=== PATIENT | female | born 1940 | race Caucasian/White ===

== ENCOUNTER → 2018-05-08 | Outpatient (CLI) | payer MEDICARE, BC ==
[~2018-05-08] MED LIST: ASPI81CH PO; Aspir 8181 MG PO; CHOL10002; CITRACAL; Daily Multiple1 EACH PO; LETR2.5 PO; LEVSOD25; METF500C PO; MULVITA; Synthroid112 MCG PO; VITAMIN D35000 UNI1 PO; WARF5; WARF5 PO
[2018-05-08 12:55] LABS: BASOPHILS ABSOLUTE AUTO 0.02 K/mm3 (0.00-0.23); BASOPHILS PERCENT AUTO 0 % (0-2); EOSINOPHILS PERCENT AUTO 6 % (0-6); Hematocrit 37.6 % (33.0-51.0); Hemoglobin 12.3 g/dL (11.5-16.0); IMMATURE GRAN ABSOLUTE AUTO 0.04 K/mm3 (0.00-0.10); IMMATURE GRAN PERCENT AUTO 1 % (0-1); LYMPHOCYTES ABSOLUTE AUTO 2.44 K/mm3 (0.84-5.20); LYMPHOCYTES PERCENT AUTO 38 % (21-46); MONOCYTES ABSOLUTE AUTO 0.48 K/mm3 (0.16-1.47); MONOCYTES PERCENT AUTO 8 % (4-13); Mean Corpuscular HGB 28.8 pg (26.0-34.0); Mean Corpuscular HGB Conc 32.7 g/dL (31.5-36.5); Mean Corpuscular Volume 88 fL (80-100); Mean Platelet Volume 10.9 fL (9.1-12.4); NEUTROPHILS PERCENT AUTO 47 % (41-73); Platelet Count 268 K/mm3 (150-400); RDW Standard Deviation 45.1 fL (35.1-46.3); Red Blood Cell Count 4.27 M/mm3 (3.80-5.20); White Blood Cell Count 6.38 K/mm3 (4.00-11.30)
[2018-05-08 13:16] LABS: Alanine Aminotransfer (ALT/SGP 20 U/L (12-78); Albumin, Blood 3.6 g/dL (3.4-5.0); Albumin/Globulin Ratio 0.9 (0.8-1.8); Alk Phos 62 U/L (40-126); Anion Gap 9 mmol/L (6-16); Aspartate Aminotrans (AST/SGOT 16 U/L (12-37); Bilirubin, Total 0.3 mg/dL (0.1-1.0); Blood Urea Nitrogen 16 mg/dL (8-24); Bun/Creatinine Ratio 18.8 (12.0-20.0); CO2, Blood 28 mmol/L (21-32); Calcium, Blood 9.2 mg/dL (8.5-10.1); Chloride, Blood 105 mmol/L (98-108); Creatinine, Blood 0.85 mg/dL (0.40-1.00); Globulin, Blood 4.1 g/dL (2.2-4.0); Glomerular Filtration Rate >60 (60-); Glucose, Blood 89 mg/dL (70-99); Potassium, Blood 3.9 mmol/L (3.5-5.5); Sodium, Blood 142 mmol/L (136-145); Thyroid Stimulating Hormone 0.358 uIU/mL (0.360-4.800); Total Protein, Blood 7.7 g/dL (6.4-8.2)
[2018-05-08 13:17] LABS: Troponin I <0.017 ng/mL (0.000-0.040)
[2018-05-08 14:03] LABS: Free Thyroxine 1.37 ng/dL (0.70-1.60)
== END | disposition home or self-care (01) ==
LOC: LAB EV 12:51 → LAB SHORT 12:51
PROVIDERS: Physician Assistant
DX: I16.0 Hypertensive urgency (principal); E03.9 Hypothyroidism, unspecified
CPT/HCPCS: 80053; 84439; 84443; 84481; 84484; 85025

== ENCOUNTER → 2019-05-26 | Outpatient (CLI) | payer MEDICARE, BC | END | disposition home or self-care (01) | LOC: LAB SHORT 18:01 → LAB 18:01 | DX: R30.0 Dysuria (principal); R30.9 Painful micturition, unspecified | CPT/HCPCS: 87077; 87086; 87186 ==

== ENCOUNTER → 2019-11-12 | Outpatient (CLI) | payer MEDICARE, BC ==
[2019-11-12 18:53] LABS: BASOPHILS ABSOLUTE AUTO 0.03 K/mm3 (0.00-0.23); BASOPHILS PERCENT AUTO 0 % (0-2); EOSINOPHILS ABSOLUTE AUTO 0.16 K/mm3 (0.00-0.68); EOSINOPHILS PERCENT AUTO 2 % (0-6); Hematocrit 36.3 % (33.0-51.0); Hemoglobin 12.1 g/dL (11.5-16.0); IMMATURE GRAN ABSOLUTE AUTO 0.02 K/mm3 (0.00-0.10); IMMATURE GRAN PERCENT AUTO 0 % (0-1); LYMPHOCYTES ABSOLUTE AUTO 2.47 K/mm3 (0.84-5.20); LYMPHOCYTES PERCENT AUTO 37 % (21-46); MONOCYTES ABSOLUTE AUTO 0.49 K/mm3 (0.16-1.47); MONOCYTES PERCENT AUTO 7 % (4-13); Mean Corpuscular HGB 29.2 pg (26.0-34.0); Mean Corpuscular HGB Conc 33.3 g/dL (31.5-36.5); Mean Corpuscular Volume 88 fL (80-100); Mean Platelet Volume 10.9 fL (9.1-12.4); NEUTROPHILS ABSOLUTE AUTO 3.52 K/mm3 (1.96-9.15); NEUTROPHILS PERCENT AUTO 53 % (41-73); Platelet Count 267 K/mm3 (150-400); RDW Coefficient Variation 14.3 % (11.7-14.2); RDW Standard Deviation 45.7 fL (35.1-46.3); Red Blood Cell Count 4.14 M/mm3 (3.80-5.20); White Blood Cell Count 6.69 K/mm3 (4.00-11.30)
[2019-11-12 19:11] LABS: Alanine Aminotransfer (ALT/SGP 19 U/L (12-78); Albumin, Blood 3.9 g/dL (3.4-5.0); Alk Phos 66 U/L (40-126); Anion Gap 11 mmol/L (6-16); Aspartate Aminotrans (AST/SGOT 19 U/L (12-37); Bilirubin, Total 0.3 mg/dL (0.1-1.0); Blood Urea Nitrogen 15 mg/dL (8-24); Bun/Creatinine Ratio 16.9 (12.0-20.0); CO2, Blood 24 mmol/L (21-32); Calcium, Blood 8.9 mg/dL (8.5-10.1); Chloride, Blood 103 mmol/L (98-108); Creatinine, Blood 0.89 mg/dL (0.40-1.00); Globulin, Blood 3.9 g/dL (2.2-4.0); Glomerular Filtration Rate >60 (60-); Glucose, Blood 96 mg/dL (70-99); Potassium, Blood 3.7 mmol/L (3.5-5.5); Sodium, Blood 138 mmol/L (136-145); Thyroid Stimulating Hormone 1.159 uIU/mL (0.360-4.800); Total Protein, Blood 7.8 g/dL (6.4-8.2)
[2019-11-12 19:12] LABS: Troponin I <0.017 ng/mL (0.000-0.040)
== END ==
LOC: LAB SHORT 18:46 → LAB EV 18:46
PROVIDERS: Physician Assistant
DX: R00.2 Palpitations (principal)
CPT/HCPCS: 80053; 84443; 84484; 85025; 85379

== ENCOUNTER → 2021-07-25 | Outpatient (CLI) | payer MEDICARE, BC | END | disposition home or self-care (01) | LOC: LAB SHORT 17:01 | DX: M79.672 Pain in left foot (principal) | CPT/HCPCS: 84550 ==

== ENCOUNTER 2023-03-18 16:12 | Emergency (ER) | payer OTHER, MEDICARE, BC ==
[~2023-03-18] VITALS: Ht 160 cm; Wt 73.9 kg
[~2023-03-18 16:12] MED LIST changes: +CODEINE-GUAIFE120 M1 PO
[2023-03-18] MEDS ORDERED: DONEPEZIL HCL10 MG PO (16:33)
[2023-03-18] MEDS ORDERED: LOSA25 PO (16:34)
[2023-03-18] MEDS ORDERED: ZOLOFT10013 PO (16:37)
[2023-03-18] MEDS ORDERED: MEMA10 PO (16:38)
[2023-03-18] MEDS ORDERED: MELA3 PO (16:39)
[2023-03-18] MEDS ORDERED: VITAMIN D31000 UNI1 PO (16:39)
[2023-03-18] MEDS ORDERED: ASCO500 PO (16:40)
[2023-03-18 20:15] VITALS: BP 132/90
== END 2023-03-18 20:30 | disposition home or self-care (01) ==
LOC: ER 16:12
DX: S00.12XA Contusion of left eyelid and periocular area, initial encounter (principal); S60.222A Contusion of left hand, initial encounter; S80.02XA Contusion of left knee, initial encounter; I10 Essential (primary) hypertension; E03.9 Hypothyroidism, unspecified; F03.90 Unspecified dementia, unspecified severity, without behavioral disturbance, psychotic disturbance, mood disturbance, and anxiety; Z88.5 Allergy status to narcotic agent; Z88.8 Allergy status to other drugs, medicaments and biological substances; Z87.891 Personal history of nicotine dependence; Z79.899 Other long term (current) drug therapy; Z79.890 Hormone replacement therapy; W01.0XXA Fall on same level from slipping, tripping and stumbling without subsequent striking against object, initial encounter
CPT/HCPCS: 70450; 73110; 73562-LT; 99284-25; A9270

== ENCOUNTER 2023-04-01 18:20 | Observation (INO) | payer MEDICARE ==
[~2023-04-01] VITALS: Ht 160 cm; Wt 76.2 kg
[~2023-04-01 18:20] MED LIST changes: +ASCO500 PO; +DONEPEZIL HCL10 MG PO; +LOSA25 PO; +MELA3 PO; +MEMA10 PO; +VITAMIN D31000 UNI1 PO; +ZOLOFT10013 PO
[2023-04-01 21:17] LABS: BASOPHILS ABSOLUTE AUTO 0.05 K/mm3 (0.00-0.23); BASOPHILS PERCENT AUTO 1 % (0-2); EOSINOPHILS ABSOLUTE AUTO 0.11 K/mm3 (0.00-0.68); EOSINOPHILS PERCENT AUTO 1 % (0-6); Hematocrit 33.4 % (33.0-51.0); Hemoglobin 11.2 g/dL (11.5-16.0); IMMATURE GRAN ABSOLUTE AUTO 0.03 K/mm3 (0.00-0.10); IMMATURE GRAN PERCENT AUTO 0 % (0-1); LYMPHOCYTES PERCENT AUTO 17 % (21-46); MONOCYTES ABSOLUTE AUTO 0.55 K/mm3 (0.16-1.47); MONOCYTES PERCENT AUTO 6 % (4-13); Mean Corpuscular HGB Conc 33.5 g/dL (31.5-36.5); Mean Corpuscular Volume 90 fL (80-100); Mean Platelet Volume 10.6 fL (9.1-12.4); NEUTROPHILS PERCENT AUTO 75 % (41-73); Platelet Count 295 K/mm3 (150-400); RDW Coefficient Variation 13.9 % (11.7-14.2); RDW Standard Deviation 45.5 fL (35.1-46.3); Red Blood Cell Count 3.73 M/mm3 (3.80-5.20); White Blood Cell Count 9.84 K/mm3 (4.00-11.30)
[2023-04-01 21:37] LABS: Albumin, Blood 3.8 g/dL (3.4-5.0); Bilirubin, Total 0.3 mg/dL (0.1-1.0); Bun/Creatinine Ratio 47.8 (12.0-20.0); Calcium, Blood 9.9 mg/dL (8.5-10.1); Creatinine, Blood 1.15 mg/dL (0.40-1.00); Globulin, Blood 3.9 g/dL (2.2-4.0); Potassium, Blood 3.7 mmol/L (3.5-5.5); Total Protein, Blood 7.7 g/dL (6.4-8.2)
[2023-04-02 16:45] VITALS: BP 111/78
[2023-04-02] MEDS ORDERED: MELA3 PO (17:23)
--- NOTE | 2023-04-02 18:01 | NUR ---
ASSUMED CARE OF PT AT 1645. PT AND FAMILY ORIENTED TO ROOM. ADMISSION HX AND ASSESSMENTS COMPLETED. NO ACUTE CHANGES AT THIS TIME. PT ORIENTED TO SELF AND FAMILY, OCCASIONALY PLACE. PT PLEASANTLY CONFUSED BUT REORIENTABLE.
--- NOTE | 2023-04-02 18:03 | NUR ---
SHIFT SUMMARY PT A&O TO PERSON AND SELF. VSS. HX OF DEMENTIA, CONFUSED BUT REORIENTABLE. NO ACUTE EVENTS DURING MY SHIFT. FAMILY AT BEDSIDE ABLE TO GIVE FULL PT HX AND RX RECONCILLIATION. PT LEFT IN A POSITION OF SAFETY WITH NONSKID SOCKS IN PLACE, BED LOCKED AND IN LOWEST POSITION, CALL LIGHT IN REACH, FLOOR CLEAR OF DEBRIS, AND BED ALARM ENABLED.
--- NOTE | 2023-04-02 19:28 | NUR ---
RECEIVED BEDSIDE REPORT FROM GARY RN. PT ALERT TO NAME. RESP EVEN ON RA. WILL PROVIDE CARE T/O SHIFT. BED ALARM ON. CALL LT IN REACH.
[2023-04-02 19:45] VITALS: BP 171/88
[2023-04-02 22:48] VITALS: BP 180/87
--- NOTE | 2023-04-02 23:58 | NUR ---
25 MG HYDRALAZINE GIVEN PO FOR SBP GREATER THAN 160. SBP 180. WILL REASSESS. BED ALARM ON. CALL LT IN REACH.
--- NOTE | 2023-04-03 01:29 | NUR ---
PT RESTING COMFORTABLY, LIGHTLY SNORING. BED ALARM ON. CALL LT IN REACH.
--- NOTE | 2023-04-03 02:00 | NUR ---
PT CONTINUES TO REST QUIETLY. BED ALARM ON. CALL LT IN REACH.
--- NOTE | 2023-04-03 04:00 | NUR ---
CONTINUES TO REST QUIETLY, LIGHTLY SNORING. BED ALARM ON. CALL LT IN REACH.
--- NOTE | 2023-04-03 04:28 | NUR ---
ALERT TO SELF AND OCCASIONALY STAFF. PLEASANTLY CONFUSED, IMPULSIVE AT TIMES, COOPERATIVE WITH CARE. ON RA. NO COMPLAINTS OF SOB, CHEST PAIN OR CHEST PRESSURE. NO COMPLAINTS OF HEADACHES. TOOK MEDS WHOLE WITH WATER WITHOUT DIFFICULTY. 1PA TO THE BSC. SET OFF BED ALARM A FEW TIMES DURING SHIFT. WAS EASILY DIRECTABLE BACK TO BED. NO IV ACCESS ORDER RECEIVED AFTER PT PULLED HER IV OUT. IV HYDRALAZINE CHANGED TO PO HYDRALAZINE, TO BE GIVEN IF SBP IS GREATER THAN 160, ONE DOSE GIVEN FOR SBP OF 180. WILL CONTINUE TO PROVIDE CARE UNTIL SHIFT REPORT. CALL LTE IN REACH.
[2023-04-03 04:49] VITALS: BP 154/78
[2023-04-03 05:02] LABS: BASOPHILS ABSOLUTE AUTO 0.05 K/mm3 (0.00-0.23); BASOPHILS PERCENT AUTO 1 % (0-2); EOSINOPHILS ABSOLUTE AUTO 0.28 K/mm3 (0.00-0.68); EOSINOPHILS PERCENT AUTO 4 % (0-6); Hematocrit 33.2 % (33.0-51.0); Hemoglobin 11.2 g/dL (11.5-16.0); IMMATURE GRAN ABSOLUTE AUTO 0.03 K/mm3 (0.00-0.10); IMMATURE GRAN PERCENT AUTO 0 % (0-1); LYMPHOCYTES ABSOLUTE AUTO 2.06 K/mm3 (0.84-5.20); LYMPHOCYTES PERCENT AUTO 30 % (21-46); MONOCYTES ABSOLUTE AUTO 0.58 K/mm3 (0.16-1.47); MONOCYTES PERCENT AUTO 8 % (4-13); Mean Corpuscular HGB 29.3 pg (26.0-34.0); Mean Corpuscular HGB Conc 33.7 g/dL (31.5-36.5); Mean Corpuscular Volume 87 fL (80-100); Mean Platelet Volume 10.4 fL (9.1-12.4); NEUTROPHILS ABSOLUTE AUTO 3.92 K/mm3 (1.96-9.15); NEUTROPHILS PERCENT AUTO 57 % (41-73); Platelet Count 283 K/mm3 (150-400); RDW Coefficient Variation 13.8 % (11.7-14.2); Red Blood Cell Count 3.82 M/mm3 (3.80-5.20); White Blood Cell Count 6.92 K/mm3 (4.00-11.30)
[2023-04-03 05:38] LABS: Albumin, Blood 3.4 g/dL (3.4-5.0); Anion Gap 6 mmol/L (6-16); Blood Urea Nitrogen 33 mg/dL (8-24); Bun/Creatinine Ratio 40.3 (12.0-20.0); CO2, Blood 24 mmol/L (21-32); Calcium, Blood 9.2 mg/dL (8.5-10.1); Chloride, Blood 110 mmol/L (98-108); Creatinine, Blood 0.82 mg/dL (0.40-1.00); Glomerular Filtration Rate 72 (60-); Glucose, Blood 94 mg/dL (70-99); Magnesium, Blood 1.9 mg/dL (1.6-2.4); Phosphorus, Blood 2.4 mg/dL (2.5-4.9); Potassium, Blood 3.4 mmol/L (3.5-5.5); Sodium, Blood 140 mmol/L (136-145)
[2023-04-03 07:18] VITALS: BP 153/82
[2023-04-03] MEDS ORDERED: LOSA50 PO (15:41)
[2023-04-03] MEDS ORDERED: ACET325 PO (15:42)
--- NOTE | 2023-04-03 17:03 | NUR ---
SHIFT SUMMARY PT MEDICALLY STABLE FOR D/C. PT FAMILY IN ROOM, SPOKE WITH DR BREEN REGARDING DISCHARGE. NO ACUTE EVENTS DURING SHIFT, PT DISCHARGED HOME WITH FAMILY AND WAS TRANSPORTED VIA W/C TO CAR. NO PERSONAL ITEMS LEFT IN ROOM, ALL ITEMS WITH PT. VSS. ALL QUESTIONS AND CONCERNS ANSWERED PRIOR TO D/C. D/C EDUCATION GIVEN TO PT AND FAMILY.
== END 2023-04-03 16:26 | disposition home health service (06) ==
LOC: ER 18:20 → ERHOLD 18:21 → MEDS 04-02 16:37
PROVIDERS: Physician Assistant; ADMIT Family Medicine
DX: S06.5X0A Traumatic subdural hemorrhage without loss of consciousness, initial encounter (principal); W18.30XA Fall on same level, unspecified, initial encounter; N17.9 Acute kidney failure, unspecified; F03.90 Unspecified dementia, unspecified severity, without behavioral disturbance, psychotic disturbance, mood disturbance, and anxiety; I10 Essential (primary) hypertension; F41.8 Other specified anxiety disorders; K21.9 Gastro-esophageal reflux disease without esophagitis; E78.5 Hyperlipidemia, unspecified; E03.9 Hypothyroidism, unspecified; Z88.5 Allergy status to narcotic agent; Z79.890 Hormone replacement therapy; Z79.899 Other long term (current) drug therapy
CPT/HCPCS: 36415; 70450; 71045; 72125; 80053; 80069; 83735; 85025; 85379; 93005; 93010; 93971; 96374; 97116; 97162; 97165; 97530; 99285-25; A9270; G0378; J0360

== ENCOUNTER 2023-07-18 09:46 | Inpatient (IN) | payer MEDICARE ==
[~2023-07-18] VITALS: Ht 165.1 cm; Wt 75.1 kg
[~2023-07-18 09:46] MED LIST changes: +ACET325 PO; +LOSA50 PO
[2023-07-18 11:37] LABS: BASOPHILS ABSOLUTE AUTO 0.04 K/mm3 (0.00-0.23); BASOPHILS PERCENT AUTO 1 % (0-2); EOSINOPHILS ABSOLUTE AUTO 0.06 K/mm3 (0.00-0.68); EOSINOPHILS PERCENT AUTO 1 % (0-6); Hematocrit 34.5 % (33.0-51.0); Hemoglobin 11.4 g/dL (11.5-16.0); IMMATURE GRAN ABSOLUTE AUTO 0.04 K/mm3 (0.00-0.10); IMMATURE GRAN PERCENT AUTO 1 % (0-1); LYMPHOCYTES ABSOLUTE AUTO 1.38 K/mm3 (0.84-5.20); LYMPHOCYTES PERCENT AUTO 17 % (21-46); MONOCYTES ABSOLUTE AUTO 0.55 K/mm3 (0.16-1.47); MONOCYTES PERCENT AUTO 7 % (4-13); Mean Corpuscular HGB 29.2 pg (26.0-34.0); Mean Corpuscular Volume 88 fL (80-100); Mean Platelet Volume 10.2 fL (9.1-12.4); NEUTROPHILS ABSOLUTE AUTO 6.15 K/mm3 (1.96-9.15); NEUTROPHILS PERCENT AUTO 75 % (41-73); Platelet Count 159 K/mm3 (150-400); RDW Coefficient Variation 13.8 % (11.7-14.2); RDW Standard Deviation 44.4 fL (35.1-46.3); Red Blood Cell Count 3.91 M/mm3 (3.80-5.20); White Blood Cell Count 8.22 K/mm3 (4.00-11.30)
[2023-07-18 12:07] LABS: Albumin, Blood 3.3 g/dL (3.4-5.0); Albumin/Globulin Ratio 0.8 (0.8-1.8); Bilirubin, Total 0.4 mg/dL (0.1-1.0); Bun/Creatinine Ratio 39.8 (12.0-20.0); Calcium, Blood 9.3 mg/dL (8.5-10.1); Creatinine, Blood 0.91 mg/dL (0.40-1.00); Potassium, Blood 3.8 mmol/L (3.5-5.5); Total Protein, Blood 7.3 g/dL (6.4-8.2)
[2023-07-18 12:20] LABS: Base Excess Venous -3.1 mmol/L; Bicarbonate Venous 21.3 mmol/L (24.0-30.0); PCO2 Venous 44.4 mmHg (38-42); pH Blood Venous 7.32 (7.34-7.37)
[2023-07-18 13:43] LABS: Adenovirus Not Detected (NOT DETECT); Bordetella pertussis Not Detected (NOT DETECT); Chlamydophila pneumoniae Not Detected (NOT DETECT); Coronavirus 229E Not Detected (NOT DETECT); Coronavirus HKU1 Not Detected (NOT DETECT); Coronavirus NL63 Not Detected (NOT DETECT); Coronavirus OC43 Not Detected (NOT DETECT); Human Metapneumovirus Not Detected (NOT DETECT); Human Rhinovirus/Enterovirus Not Detected (NOT DETECT); Influenza A/2009-H1 Not Detected (NOT DETECT); Influenza A/H1 Not Detected (NOT DETECT); Influenza A/H3 Not Detected (NOT DETECT); Influenza B Not Detected (NOT DETECT); Mycoplasma pneumoniae Not Detected (NOT DETECT); Parainfluenza Virus 1 Not Detected (NOT DETECT); Parainfluenza Virus 2 Not Detected (NOT DETECT); Parainfluenza Virus 3 Not Detected (NOT DETECT); Parainfluenza Virus 4 Not Detected (NOT DETECT); Respiratory Syncytial Virus Not Detected (NOT DETECT); SARS-Cov-2 (COVID-19), BioFire Not Detected (NOT DETECT)
[2023-07-18 15:02] LABS: Anti-Xa UFH, PHA Monitoring <0.10 IU/mL; International Normalized Ratio 1.03; Prothrombin Time Results 10.8 Sec (9.7-11.5)
[2023-07-18] MEDS ORDERED: LEVSOD112 PO (16:51)
[2023-07-18] MEDS ORDERED: OYSTER SHELL 51 EACH PO (16:51)
[2023-07-18 20:26] VITALS: BP 144/78
[2023-07-19] VITALS (7 sets, daily range): BP systolic 121–170; BP diastolic 68–88
[2023-07-19 03:52] LABS: BASOPHILS ABSOLUTE AUTO 0.04 K/mm3 (0.00-0.23); BASOPHILS PERCENT AUTO 1 % (0-2); EOSINOPHILS ABSOLUTE AUTO 0.21 K/mm3 (0.00-0.68); EOSINOPHILS PERCENT AUTO 3 % (0-6); Hemoglobin 10.8 g/dL (11.5-16.0); IMMATURE GRAN ABSOLUTE AUTO 0.04 K/mm3 (0.00-0.10); IMMATURE GRAN PERCENT AUTO 1 % (0-1); LYMPHOCYTES ABSOLUTE AUTO 2.23 K/mm3 (0.84-5.20); LYMPHOCYTES PERCENT AUTO 30 % (21-46); MONOCYTES ABSOLUTE AUTO 0.61 K/mm3 (0.16-1.47); MONOCYTES PERCENT AUTO 8 % (4-13); Mean Corpuscular HGB 29.5 pg (26.0-34.0); Mean Corpuscular HGB Conc 33.8 g/dL (31.5-36.5); Mean Corpuscular Volume 87 fL (80-100); Mean Platelet Volume 10.4 fL (9.1-12.4); NEUTROPHILS ABSOLUTE AUTO 4.25 K/mm3 (1.96-9.15); NEUTROPHILS PERCENT AUTO 58 % (41-73); Platelet Count 176 K/mm3 (150-400); RDW Coefficient Variation 13.7 % (11.7-14.2); RDW Standard Deviation 43.8 fL (35.1-46.3); Red Blood Cell Count 3.66 M/mm3 (3.80-5.20); White Blood Cell Count 7.38 K/mm3 (4.00-11.30)
[2023-07-19 04:12] LABS: Albumin, Blood 3.2 g/dL (3.4-5.0); Albumin/Globulin Ratio 0.9 (0.8-1.8); Bilirubin, Total 0.4 mg/dL (0.1-1.0); Bun/Creatinine Ratio 30.8 (12.0-20.0); Calcium, Blood 9.2 mg/dL (8.5-10.1); Creatinine, Blood 1.04 mg/dL (0.40-1.00); Globulin, Blood 3.7 g/dL (2.2-4.0); Potassium, Blood 3.4 mmol/L (3.5-5.5); Total Protein, Blood 6.9 g/dL (6.4-8.2)
--- NOTE | 2023-07-19 06:17 | NUR ---
SHIFT SUMMARY NO ACUTE EVENTS T/O NIGHT. PT A/O X 2. MORE CONFUSED THIS AM, GETTING OOB WITH OUT CALLING, PULLED IV OUT, AND PULLING TELE WIRES OFF. PT EASILY REDIRECTABLE. HEPARIN GTT INFUSING AT 18 UNITS/KG/HR. VSS. SR 70-90'S. DENIES CHEST PAIN/SOB. ON 2L NC. ONE ASSIST TO BSC. WILL REPORT OFF TO ONCOMING RN.
--- NOTE | 2023-07-19 08:44 | NUR ---
PT IS SITTING UP EATING BREAKFAST. NO SOB NOTED. SHE IS REFUSING ALL ORAL MEDICATIONS SHE STATES THAT AT HOME SHE IS "LEFT ALONE" WHEN SHE DOES NOT FEEL LIKE TAKING HER MEDICATIONS. SHE IS PLEASANT AND VERY CONFUSED, WHICH IS HER BASELINE.
--- NOTE | 2023-07-19 18:24 | NUR ---
PT IS ALERT, IS REMAINS VERY CONFUSED, SHE IS VERY TEARFUL AND PARANOID, SHE IS RELUCTANT TO TAKE ORAL MEDICATIONS THIS AM THIS EVENING. SHE IS PLEASANT, SHE COOPERATES WITH MOST CARE. EVENING BLOOD PRESSURE WAS SUSPECTED TO BE ERRONEOUS PT WAS VERY UPSET AND SOBBING, SHE STATES THAT SHE IS CONCERNED THAT HER SON AND DAUGHTER IN LAW ARE "MOVING INTO MY HOUSE TO TAKE OVER" PT IS KNOWN TO HAVE LIVED WITH HER SON AND HIS FOR QUTE SOME TIME NOW, IT IS NOT SUSPECTED THAT THERE IS ABUSE WITHIN THE HOME, [facility] IS VERY INVOLVED IN HER CARE
[2023-07-20 03:41] VITALS: BP 127/66
--- NOTE | 2023-07-20 05:47 | NUR ---
HOSPICE EDUCATOR SUMMARY PT HAS REMAINED ALERT AND ORIENTED X3 THIS SHIFT NEEDING FREQUENT REDIRECTING ABOUT THE NEED FOR HER TO CALL FOR ASSISTANCE WHEN EXITING THE BED. PT PLEASANT AND COOPERATIVE W CARE DESPITE HER FORGETFULLNESS. PT MAINTAINED SPO2 >92% ON 2L NC. BP WNL AND STABLE. MONITOR SHOWING SR 60'S WHEN AWAKE BUT DID BECOME BRADYCARDIC ONCE ASLEEP LOW 39 BPM, PT ASYMPTOMATIC W BRADYCARDIA. PT AFEBRILE THIS SHIFT. PT ABLE TO SLEEP FOR MOST OF THE NIGHT. WILL REPORT TO ONCOMING RN.
[2023-07-20 08:53] VITALS: BP 121/63
[2023-07-20 08:53] LABS: BASOPHILS ABSOLUTE AUTO 0.04 K/mm3 (0.00-0.23); BASOPHILS PERCENT AUTO 1 % (0-2); EOSINOPHILS ABSOLUTE AUTO 0.33 K/mm3 (0.00-0.68); EOSINOPHILS PERCENT AUTO 5 % (0-6); Hematocrit 33.4 % (33.0-51.0); IMMATURE GRAN ABSOLUTE AUTO 0.05 K/mm3 (0.00-0.10); IMMATURE GRAN PERCENT AUTO 1 % (0-1); LYMPHOCYTES ABSOLUTE AUTO 2.03 K/mm3 (0.84-5.20); LYMPHOCYTES PERCENT AUTO 33 % (21-46); MONOCYTES ABSOLUTE AUTO 0.49 K/mm3 (0.16-1.47); MONOCYTES PERCENT AUTO 8 % (4-13); Mean Corpuscular HGB 29.1 pg (26.0-34.0); Mean Corpuscular HGB Conc 32.9 g/dL (31.5-36.5); Mean Corpuscular Volume 88 fL (80-100); Mean Platelet Volume 10.1 fL (9.1-12.4); NEUTROPHILS ABSOLUTE AUTO 3.31 K/mm3 (1.96-9.15); NEUTROPHILS PERCENT AUTO 53 % (41-73); Platelet Count 198 K/mm3 (150-400); RDW Coefficient Variation 13.6 % (11.7-14.2); RDW Standard Deviation 44.1 fL (35.1-46.3); Red Blood Cell Count 3.78 M/mm3 (3.80-5.20); White Blood Cell Count 6.25 K/mm3 (4.00-11.30)
[2023-07-20 12:03] VITALS: BP 131/75
--- NOTE | 2023-07-20 12:16 | NUR ---
PT IS CALM AND COOPERATIVE WITH CARE, SHE DOES ALLOW FOR ORAL MEDCIATION PASS THIS AM. SHE ATE WELL THIS AM, DOES NOT HAVE MUCH OF AN APPETITE FOR LUNCH BUT SHE STATES THIS IS NORMAL. DR GONZALEZ WAS IN TO SEE PATIENT THIS AM, THE PLAN IS THAT WE WILL CONTINUE HEPARIN DRIP UNTL 1900 TONIGHT AND THEN BRIDGE TO XARELTO. PT HAS BEEN MADE AWARE OF THIS, SHE IS UPDATED ABOUT D/C TOMORROW, SHE FORGETS BUT IS REMINDED A FEW TIMES ABOUT THE PLAN. WILL UPDATE FAMILY WHEN THEY ARRIVE TODAY
[2023-07-20 17:40] VITALS: BP 141/87
--- NOTE | 2023-07-20 18:59 | NUR ---
THERE ARE NO CHANGES SINCE LAST NOTE. VSS. JOHNN. PT WILL START ON XARELTO TONIGHT AND PLAN FOR POSSIBLE DC IN THE AM
[2023-07-20 19:38] VITALS: BP 130/79
--- NOTE | 2023-07-20 22:08 | NUR ---
ASSUMPTION OF CARE AFTER RECEIVING REPORT FROM MAYO RN, THIS RN ASSUMED CARE AT APPROX 1915. PATIENT ALERT, READING BOOK IN BED DURING INITIAL ENCOUNTER. IS ALERT AND ORIENTED X1-2. IS ABLE TO REPORT NAME/DATE OF AND THAT SHE IS AT [facility]. UNABLE TO REPORT REASON. EDUCATION PROVIDED, DOES REQUIRE FREQUENT REMINDER OF PLAN OF CARE, MEDICATION, ETC. BED ALARM IN PLACE. TELEMETRY SHOWING SINUS RHYTHM, SINUS MARIANA 50's-60's. BP STABLE. DENIES CHEST PAIN, PRESSURE. IS ON ROOM AIR, SATS >90%. DENIES SHORTNESS OF BREATH AT REST OR WITH MOBILITY. BILATERAL LOWER EXTREMITIES COOL TO TOUCH, PPP. DENIES PAIN. IS A STAND BY ASSIST TO BSC, CHAIR. VOIDING. CALL LIGHT IN REACH.
[2023-07-20 22:57] VITALS: BP 147/65
[2023-07-21 04:17] LABS: BASOPHILS ABSOLUTE AUTO 0.04 K/mm3 (0.00-0.23); BASOPHILS PERCENT AUTO 1 % (0-2); EOSINOPHILS ABSOLUTE AUTO 0.35 K/mm3 (0.00-0.68); EOSINOPHILS PERCENT AUTO 5 % (0-6); Hematocrit 31.8 % (33.0-51.0); Hemoglobin 10.4 g/dL (11.5-16.0); IMMATURE GRAN ABSOLUTE AUTO 0.05 K/mm3 (0.00-0.10); IMMATURE GRAN PERCENT AUTO 1 % (0-1); LYMPHOCYTES ABSOLUTE AUTO 2.09 K/mm3 (0.84-5.20); LYMPHOCYTES PERCENT AUTO 30 % (21-46); MONOCYTES PERCENT AUTO 9 % (4-13); Mean Corpuscular HGB 28.7 pg (26.0-34.0); Mean Corpuscular HGB Conc 32.7 g/dL (31.5-36.5); Mean Corpuscular Volume 88 fL (80-100); Mean Platelet Volume 10.7 fL (9.1-12.4); NEUTROPHILS ABSOLUTE AUTO 3.77 K/mm3 (1.96-9.15); NEUTROPHILS PERCENT AUTO 55 % (41-73); Platelet Count 214 K/mm3 (150-400); RDW Coefficient Variation 13.7 % (11.7-14.2); RDW Standard Deviation 43.9 fL (35.1-46.3); Red Blood Cell Count 3.62 M/mm3 (3.80-5.20)
[2023-07-21 04:37] VITALS: BP 126/85
[2023-07-21 04:39] LABS: Albumin/Globulin Ratio 0.8 (0.8-1.8); Bilirubin, Total 0.3 mg/dL (0.1-1.0); Bun/Creatinine Ratio 24.6 (12.0-20.0); Calcium, Blood 9.2 mg/dL (8.5-10.1); Creatinine, Blood 0.98 mg/dL (0.40-1.00); Globulin, Blood 3.7 g/dL (2.2-4.0); Potassium, Blood 3.9 mmol/L (3.5-5.5); Total Protein, Blood 6.7 g/dL (6.4-8.2)
--- NOTE | 2023-07-21 04:47 | NUR ---
SHIFT SUMMARY NO ACUTE CHANGES SINCE ASSUMPTION OF CARE NOTE. PATIENT SLEPT THROUGHOUT SHIFT, REMAINS EASILY AROUSABLE TO VERBAL STIMULI. IS ALERT AND ORIENTED X1-2 THROUGHOUT. AT TIMES, REQUIRED REMINDING TO CURRENT SITUATION, LOCATION. TELEMETRY SHOWING SINUS MARIANA 50's. BP STABLE. HEPARIN GTT STOPPED PER EMAR, PO ELIQUIS ADMINISTERED PER EMAR. PLACED ON 2L VIA NASAL CANNULA WHILE SLEEPING PATIENT DOES DESAT TO 85-88% ON ROOM AIR. IS UP TO BEDSIDE COMMODE WITH STAND BY ASSIST. VOIDING. NO BM THIS SHIFT. BED ALARM ON. CALL LIGHT IN REACH. WILL REPORT TO ONCOMING RN.
[2023-07-21 08:35] VITALS: BP 109/73
[2023-07-21] MEDS ORDERED: ELIQUIS5 M2 PO (11:16)
--- NOTE | 2023-07-21 11:19 | NUR ---
Upon receiving a referral for spiritual care, I visited the patient. She tells me about her goal to go home, her Scientologist georgina and her family. She tells me many stories of her life growing up in [place] and going to [employer]abapt[employer] with her grandmother. She explains that she prays often and that her georgina is important. I provide therapeutic listening and prayer. Patient responded well and showed signs of an elevated mood. She voices much appreciation for the spiritual care visit.
[2023-07-21 13:00] VITALS: BP 118/70
--- NOTE | 2023-07-21 13:15 | NUR ---
DISCHARGE SUMMARY NO ACUTE CHANGES T/O SHIFT. PT UP WITH SBA AND WALKER. HOME O2 EVAL COMPLETED PT NEEDING 1 UNIT OF O2 VIA NC AT ALL TIMES. OTHER VSS. EDUCDATED PT AND FAMILY ON DISCHARGE INSTRUCTIONS, FOLLOW UP APPOINTMENTS, MEDICATIONS AND HOME OXYGEN. PT DAUGHTER IN LAW STATES SHE UNDERSTANDS. PT LEFT VIA WHEELCHAIR WITH HOME O2 AND PLANS TO CALL [facility] WHEN THEY ARRIVE HOME FOR DELIVERY.
== END 2023-07-21 13:07 | disposition home health service (06) | DRG 175 ==
LOC: ER 09:46 → PCU 13:48
PROVIDERS: Student in an Organized Health Care Education/Training Program; ADMIT Family Medicine
DX: I26.99 Other pulmonary embolism without acute cor pulmonale (principal); I21.A1 Myocardial infarction type 2; J96.01 Acute respiratory failure with hypoxia; F02.A4 Dementia in other diseases classified elsewhere, mild, with anxiety; J98.11 Atelectasis; R00.1 Bradycardia, unspecified; I10 Essential (primary) hypertension; E03.9 Hypothyroidism, unspecified; F41.8 Other specified anxiety disorders; E78.5 Hyperlipidemia, unspecified; G30.9 Alzheimer's disease, unspecified; K21.9 Gastro-esophageal reflux disease without esophagitis; M19.90 Unspecified osteoarthritis, unspecified site; Z87.820 Personal history of traumatic brain injury; Z87.891 Personal history of nicotine dependence; Z11.52 Encounter for screening for COVID-19; Z28.21 Immunization not carried out because of patient refusal
CPT/HCPCS: 0202U; 36415; 71045; 71260; 80053; 82803; 83735; 83880; 84145; 84484; 85025; 85520; 85610; 85730; 93005; 93010; 93306; 93970; 94760; 94761; 94762; 96365-59; 97116; 97161; 99285-25; A9270; J1644; Q9967

== ENCOUNTER 2024-02-16 15:36 | Emergency (ER) | payer MEDICARE ==
[~2024-02-16] VITALS: Ht 160 cm; Wt 72.6 kg
[~2024-02-16 15:36] MED LIST changes: +ELIQUIS5 M2 PO; +LEVSOD112 PO; +OYSTER SHELL 51 EACH PO
[2024-02-16 16:14] VITALS: BP 129/84
[2024-02-17] MEDS ORDERED: Bactrim Ds Tab1 EACH PO (12:50)
[2024-02-17] MEDS ORDERED: CEPH500 PO (12:50)
== END 2024-02-16 17:58 | disposition left against medical advice (07) ==
LOC: ER 15:36
DX: M25.562 Pain in left knee (principal); I10 Essential (primary) hypertension; E03.9 Hypothyroidism, unspecified; F03.90 Unspecified dementia, unspecified severity, without behavioral disturbance, psychotic disturbance, mood disturbance, and anxiety; Z79.899 Other long term (current) drug therapy; Z79.890 Hormone replacement therapy; Z79.01 Long term (current) use of anticoagulants; Z88.5 Allergy status to narcotic agent; Z88.8 Allergy status to other drugs, medicaments and biological substances
CPT/HCPCS: 99281

== ENCOUNTER 2024-02-17 11:23 | Emergency (ER) | payer MEDICARE, BC ==
[~2024-02-17] VITALS: Ht 160 cm; Wt 72.6 kg
[2024-02-17 11:31] VITALS: BP 107/68
[2024-02-17] MEDS ORDERED: Bactrim Ds Tab1 EACH PO (12:50)
[2024-02-17] MEDS ORDERED: CEPH500 PO (12:50)
== END 2024-02-17 12:51 | disposition home or self-care (01) ==
LOC: ER 11:23
DX: M25.562 Pain in left knee (principal); M71.22 Synovial cyst of popliteal space [Baker], left knee; E03.9 Hypothyroidism, unspecified; I10 Essential (primary) hypertension; F03.90 Unspecified dementia, unspecified severity, without behavioral disturbance, psychotic disturbance, mood disturbance, and anxiety; Z86.718 Personal history of other venous thrombosis and embolism; Z79.01 Long term (current) use of anticoagulants; Z79.899 Other long term (current) drug therapy; Z79.890 Hormone replacement therapy; Z88.5 Allergy status to narcotic agent; Z88.8 Allergy status to other drugs, medicaments and biological substances; Z87.891 Personal history of nicotine dependence
CPT/HCPCS: 93971; 99283-25

== ENCOUNTER → 2025-02-17 | Outpatient (CLI) | payer MEDICARE, BC ==
[~2025-02-17] MED LIST changes: +Bactrim Ds Tab1 EACH PO; +CEPH500 PO
[2025-02-17 15:41] LABS: BASOPHILS ABSOLUTE AUTO 0.03 K/mm3 (0.00-0.23); BASOPHILS PERCENT AUTO 1 % (0-2); EOSINOPHILS ABSOLUTE AUTO 0.14 K/mm3 (0.00-0.68); EOSINOPHILS PERCENT AUTO 2 % (0-6); Hematocrit 35.6 % (33.0-51.0); Hemoglobin 11.6 g/dL (11.5-16.0); IMMATURE GRAN ABSOLUTE AUTO 0.02 K/mm3 (0.00-0.10); IMMATURE GRAN PERCENT AUTO 0 % (0-1); LYMPHOCYTES ABSOLUTE AUTO 1.87 K/mm3 (0.84-5.20); LYMPHOCYTES PERCENT AUTO 31 % (21-46); MONOCYTES ABSOLUTE AUTO 0.59 K/mm3 (0.16-1.47); MONOCYTES PERCENT AUTO 10 % (4-13); Mean Corpuscular HGB Conc 32.6 g/dL (31.5-36.5); Mean Corpuscular Volume 90 fL (80-100); NEUTROPHILS ABSOLUTE AUTO 3.38 K/mm3 (1.96-9.15); NEUTROPHILS PERCENT AUTO 56 % (41-73); NRBC ABSOLUTE 0.00 K/mm3 (0.00-0.02); NRBC Auto 0.0 /100 WBC (0.0-0.2); Platelet Count 215 K/mm3 (150-400); RDW Coefficient Variation 13.5 % (11.7-14.2); RDW Standard Deviation 44.6 fL (35.1-46.3)
[2025-02-17 15:56] LABS: Source, Urine Clean Catch
[2025-02-17 16:22] LABS: Bilirubin, Urine Neg (Neg); Color, Urine Yellow (P-Yellow); Glucose Qualitative, Urine Neg (Normal); Ketones, Urine Neg (Neg); Leukocyte Esterase, Urine 1+ (Neg); Protein, Urine Neg (Neg); Specific Gravity, Urine 1.010 (1.003-1.022); Urobilinogen, Urine NORM (Normal)
[2025-02-17 16:23] LABS: Red Blood Cells, Urine Not Seen /hpf (0-2)
[2025-02-17 16:24] LABS: Alanine Aminotransfer (ALT/SGP 13.0 U/L (12-78); Albumin, Blood 3.4 g/dL (3.4-5.0); Albumin/Globulin Ratio 0.9 (0.8-1.8); Anion Gap 10.0 mmol/L (3-11); Aspartate Aminotrans (AST/SGOT 11.0 U/L (12-37); Bilirubin, Total 0.3 mg/dL (0.1-1.0); Blood Urea Nitrogen 25.0 mg/dL (8-24); CO2, Blood 26.0 mmol/L (21-32); Calcium, Blood 8.9 mg/dL (8.5-10.1); Chloride, Blood 105.0 mmol/L (98-108); Creatinine, Blood 0.95 mg/dL (0.40-1.00); Globulin, Blood 3.7 g/dL (2.2-4.0); Glucose, Blood 68.0 mg/dL (70-99); Potassium, Blood 3.5 mmol/L (3.5-5.5); Sodium, Blood 137.0 mmol/L (136-145); Total Protein, Blood 7.1 g/dL (6.4-8.2)
== END ==
LOC: LAB 14:40 → LAB SHORT 14:40
DX: R41.0 Disorientation, unspecified (principal)
CPT/HCPCS: 80053; 81001; 85025; 87086